=== PATIENT | male | born 2000 | race Caucasian/White ===

== ENCOUNTER 2019-01-15 15:05 | Emergency (ER) | payer SELFPAY ==
[~2019-01-15] VITALS: Ht 190.5 cm; Wt 90.7 kg
[2019-01-15 15:05] VITALS: Ht 190.5 cm; Wt 90.7 kg
[2019-01-15 19:29] VITALS: BP 126/75
== END 2019-01-15 19:30 | disposition home or self-care (01) ==
LOC: ED 15:05
DX: F19.10 Other psychoactive substance abuse, uncomplicated (principal); T40.5X1A Poisoning by cocaine, accidental (unintentional), initial encounter; Y92.89 Other specified places as the place of occurrence of the external cause
CPT/HCPCS: J2405; J2765; Q0092; Q0162